=== PATIENT | male | born 1960 | race Caucasian/White ===

== ENCOUNTER → 2017-03-31 | Outpatient (CLI) | payer OTHER ==
--- NOTE | 2017-04-01 08:42 | MR ---
EXAMINATION TYPE: MR knee RT wo con DATE OF EXAM: 03/31/2017 COMPARISON: Prior MRI March 13, 2014. Outside right knee x-ray March 07, 20192016 HISTORY: Rt knee pain and swelling for 2 to 5 years TECHNIQUE: Multiplanar, multisequence images of the knee is performed without IV contrast. FINDINGS: MEDIAL MENISCUS: Anterior horn is intact without tear. There is oblique and linear shaped increased s ignal posterior horn of medial meniscus extends to inferior and superior articular surface, findings are consistent with full-thickness meniscal tear. More prominent signal is noted versus prior study. LATERAL MENISCUS: Anterior and posterior horns are intact without tear. CRUCIATE LIGAMENTS: The anterior and posterior cruciate ligaments are intact and unremarkable. COLLATERAL LIGAMENTS: The medial collateral ligament and lateral collateral ligament complex are inta ct and unremarkable. EXTENSOR MECHANISM: Visualized quadriceps and patellar tendons are intact. EFFUSION: There is moderate to large size suprapatellar joint effusion now identified. POPLITEAL CYST: No popliteal/benson cyst. TRICOMPARTMENT SPACES: There is mild to moderate tricompartment joint space loss. There is mild trico mpartment joint space spurring. CARTILAGE: There is mild fissuring in the posterior patellar pole consistent with chondromalacia maddox lla. No full-thickness loss is present. There is additional fissuring medial tibiofemoral compartment seen best sagittal image 11, cartilaginous loss is also noted on coronal image 19. Cartilaginous los s is most prominent at this level likely on basis of osteoarthritis. BONE MARROW SIGNAL: No focal abnormal marrow signal is appreciated. OTHER: No additional significant abnormality is appreciated. IMPRESSION: 1. Some progression of full-thickness tear posterior horn of medial meniscus with increased irregular linear and oblique signal identified on current study. 2. New moderate to large size suprapatellar joint effusion. 3. Mild to moderate degenerative changes in right knee most prominent medial tibiofemoral compartment most likely on basis of underlying osteoarthritis.
== END | disposition home or self-care (01) ==
LOC: RADMRIMAIN 19:36
PROVIDERS: ATTEND Orthopaedic Surgery
DX: S83.241A Other tear of medial meniscus, current injury, right knee, initial encounter (principal)

== ENCOUNTER → 2017-04-08 | Outpatient (CLI) | payer OTHER ==
[2017-04-09 15:57] LABS: Basophils # (A) 0.1 k/uL (0-0.2); Basophils % (A) 1 %; CH 30.3; CHCM 32.7; Eosinophils # (A) 0.2 k/uL (0-0.7); Eosinophils % (A) 2 %; HCT 48.9 % (39.0-53.0); HDW 2.95; HGB 15.9 gm/dL (13.0-17.5); Luc % (Auto) 3; Lymphocytes # (A) 1.7 k/uL (1.0-4.8); Lymphocytes % (A) 23 %; MCH 30.2 pg (25.0-35.0); MCHC 32.5 g/dL (31.0-37.0); Mean Platelet Volume 8.4; Monocytes # (A) 0.5 k/uL (0-1.0); Monocytes % (A) 7 %; Neutrophils # (A) 4.7 k/uL (1.3-7.7); Neutrophils % (A) 64 %; RBC 5.26 m/uL (4.30-5.90); RDW 12.8 % (11.5-15.5); WBC 7.4 k/uL (3.8-10.6); WBC (Perox) 7.25
[2017-04-09 16:02] LABS: Potassium 4.8 mmol/L (3.5-5.1)
== END | disposition home or self-care (01) ==
LOC: LABPAT 12:06
PROVIDERS: ATTEND Orthopaedic Surgery
DX: Z01.818 Encounter for other preprocedural examination (principal); Z01.812 Encounter for preprocedural laboratory examination; M23.91 Unspecified internal derangement of right knee
CPT/HCPCS: 80051; 85025; 93005

== ENCOUNTER 2017-04-14 09:22 | Day surgery (SDC) | payer OTHER ==
[2017-04-12 09:19] VITALS: BMI 32.3
--- NOTE | 2017-04-13 16:22 | HP ---
HISTORY AND PHYSICAL REASON FOR ADMISSION: Surgery is 04/14/2017. HISTORY OF PRESENT ILLNESS: Yanick Shah is a 57-year-old patient seen with progressive right knee pain. We discussed treatment options. He elected to proceed with arthroscopy. Consent regarding the procedure was obtained. PAST MEDICAL HISTORY: Past medical history is hyperlipidemia. PAST SURGICAL HISTORY: Noncontributory. MEDICATIONS: Simvastatin, Uloric. ALLERGIES: None reported. SOCIAL HISTORY: Patient denies tobacco use. PHYSICAL EXAMINATION: Evaluation right knee range of motion 0-120 degrees. There is a moderate effusion. Tenderness medial joint line. Positive medial Saniya's. Crepitus along the medial patellofemoral compartments with range of motion. Ligaments stable. Hip rotation without pain. Distal neurovascular exam intact. RADIOGRAPHS: Right knee radiographs revealed moderate medial compartment and moderate lateral compartment osteoarthritis. MRI right knee revealed medial meniscal tear, osteoarthritis and joint effusion. IMPRESSION: Internal derangement, right knee with medial meniscal tear. PLAN: Right knee arthroscopy with partial meniscectomy and debridement. Surgery 04/14/2017. MMODL / IJN: [id number] /
[~2017-04-14 09:22] MED LIST: DEXAMETHASONE SOD PHOSPHATE 10 MG/ML 1 ML VIAL IV ONE; LACTATED RINGERS 1,000 ML IV SCH; MIDAZOLAM 2 MG/2 ML VIAL IV PRN; ONDANSETRON 4 MG/2 ML VIAL IVP ONE; ceFAZolin IN SWFI 2 GM/20 ML SYRINGE IVP ONE
[2017-04-14 09:47] VITALS: RESP 16
[2017-04-14] MEDS ORDERED: LIDOCAINE 1% 20 ML VIAL (10MG/ML) FOR IV START INTRADERMA ONE (09:58)
[2017-04-14] MEDS ORDERED: PROPOFOL 10 MG/ML 20 ML VIAL IV ONE (10:32)
[2017-04-14] MEDS ORDERED: LIDOCAINE 1% INJ 10MG/ML (20 ML MDV) ONE (10:32)
[2017-04-14] MEDS ORDERED: HYDROmorphone (PF) 1 MG/ML ONE (10:32)
[2017-04-14] MEDS ORDERED: BUPIVACAINE (PF) 0.25% 30 ML VIAL SQ ONE (10:32)
[2017-04-14] MEDS ORDERED: fentaNYL (PF) 50 MCG/ML 2 ML AMP ONE (10:32)
[2017-04-14] MEDS ORDERED: MIDAZOLAM 2 MG/2 ML VIAL ONE (10:32)
[2017-04-14] MEDS ORDERED: KETOROLAC 30 MG/ML 1 ML VIAL ONE (10:32)
[2017-04-14 11:23] VITALS: TEMP 97.1
--- NOTE | 2017-04-14 11:23 | P.OP ---
Date of Procedure: 04/14/17 Preoperative Diagnosis: Internal derangement right knee Postoperative Diagnosis: 1. Tear medial and lateral meniscus right knee 2. Grade 3/4 chondromalacia medial femoral condyle right knee 3. 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 Reactive synovitis medial and suprapatellar compartments right knee Procedure(s) Performed: 1. Arthroscopic partial medial and lateral meniscectomy right knee 2. Arthroscopic chondroplasty medial femoral condyle right knee 3. Arthroscopic chondroplasty patella right knee 4. Arthroscopic partial synovectomy medial and suprapatellar compartments right knee Anesthesia: MARIANNAA, local Surgeon: Casey King Estimated Blood Loss (ml): 10 Pathology: none sent Condition: stable Disposition: PACU Indications for Procedure: 57-year-old patient seen with progressive right knee pain. After treatment options were discussed, he elected to proceed with arthroscopy. Operative Findings: See description of procedure Description of Procedure: Patient was taken to the operative suite. Patient underwent a general anesthetic by the department of anesthesia. Patient was given preoperative antibiotics. The right lower extremity was placed in a well-padded arthroscopic leg naqvi. The right leg was prepped and draped in the normal sterile orthopedic fashion. A lateral parapatellar and suprapatellar incision was made. Trochars were inserted. Arthroscopy was initiated. Suprapatellar pouch revealed diffuse thick reactive synovitis. The patellofemoral joint appeared to articulate congruently. There was grade 2/3 chondromalacia of the patella with osteochondral tears present. The scope was guided into the medial gutter. No loose bodies or plica were identified. The scope was then guided into the medial compartment. A medial parapatellar incision was made. Trocar inserted followed by probe. There was a complex tear posterior horn medial meniscus which extended into the midbody. There were grade 3/4 chondromalacia changes of the medial femoral condyle with osteochondral tears present. There were grade 2 chondromalacia changes of the tibial plateau. There was reactive synovitis anteriorly. I performed a partial medial meniscectomy down to stable tissue. I performed a chondroplasty of the medial femoral condyle and partial synovectomy. The residual meniscus and osteochondral surfaces were stable. Scope and probe were then guided into the intercondylar notch. Cruciates were identified, probed and found to be stable. The scope and probe were then guided into lateral compartment. There was a radial tear posterior horn lateral meniscus. Grade 1 chondromalacia changes lateral tibial plateau. No loose bodies or reactive synovitis. I performed a partial lateral meniscectomy down to stable tissue. The residual meniscus was stable. The scope was in guided back into the suprapatellar compartment. I introduced a motorized shaver into the super patellar compartment. I debrided some piecemeal fragments of meniscus I encountered. I performed a chondroplasty of the patella down to stable tissue. I performed a partial synovectomy. Instruments were now removed from the joint. The joint was infiltrated with .25% Marcaine. Steri-Strips were applied to the portal sites. Sterile dressings were applied. The patient was placed into a JUDY hose. No tourniquet was utilized. The patient was awakened, transferred to a bed and taken to recovery stable satisfactory condition.
[2017-04-14] MEDS: HYDROmorphone 0.5 MG/0.5 ML SYRINGE IVP PRN ×2 (11:40→11:51)
[2017-04-14] MEDS ORDERED: HYDROcodone/APAP 5-325MG 1 EACH TAB PO ONE (12:18)
[2017-04-14 12:32] VITALS: BP 142/81; PULSE 80
== END 2017-04-14 13:00 | disposition home or self-care (01) ==
LOC: OR 09:22
PROVIDERS: ATTEND Orthopaedic Surgery
DX: M23.221 Derangement of posterior horn of medial meniscus due to old tear or injury, right knee (principal); M23.251 Derangement of posterior horn of lateral meniscus due to old tear or injury, right knee; M94.261 Chondromalacia, right knee; M65.861 Other synovitis and tenosynovitis, right lower leg; E78.5 Hyperlipidemia, unspecified; Z79.82 Long term (current) use of aspirin; Z79.899 Other long term (current) drug therapy
CPT/HCPCS: 29880; J2250; J1100; J0690; J2405; J2001; J3010; J1885; J1170 ×2; J2704

== ENCOUNTER → 2018-03-03 | Outpatient (CLI) | payer OTHER ==
--- NOTE | 2018-03-03 11:57 | XR ---
EXAMINATION TYPE: XR shoulder complete BILAT DATE OF EXAM: 03/03/2018 CLINICAL HISTORY: Bilateral shoulder pain for 4 months. TECHNIQUE: Three views of the bilateral shoulders are obtained. COMPARISON: None. FINDINGS: There is no acute fracture/dislocation evident in either shoulder. There is moderate to se jayce narrowing at left AC Joint with mild to moderate spurring. There is mild to moderate narrowing a t right AC joint. There is mild to moderate symmetric narrowing at bilateral AC joints. The visuali zed ribs are intact and unremarkable bilaterally. IMPRESSION: As above.
--- NOTE | 2018-03-03 12:05 | XR ---
EXAMINATION TYPE: XR Hip Bilateral Complete DATE OF EXAM: 03/03/2018 CLINICAL HISTORY: Bilateral hip pain. TECHNIQUE: AP and frogleg views of the bilateral hip are obtained. COMPARISON: None. FINDINGS: There is no acute fracture/dislocation evident in either hip. There is mild to moderate ax ial joint space loss in both hips, right slightly worse than left with mild to moderate head neck elizabeth ctional spurring right greater than left and subchondral cystic change in both hips, left greater georgette n right. The overlying soft tissue appears unremarkable bilaterally. IMPRESSION: As above.
== END | disposition home or self-care (01) ==
LOC: RADXRMAIN 11:09
PROVIDERS: ATTEND Family Medicine
DX: M25.812 Other specified joint disorders, left shoulder (principal); M25.811 Other specified joint disorders, right shoulder; M85.651 Other cyst of bone, right thigh; M85.652 Other cyst of bone, left thigh; M75.02 Adhesive capsulitis of left shoulder; M75.01 Adhesive capsulitis of right shoulder
CPT/HCPCS: 73521

== ENCOUNTER 2019-03-21 07:37 | Day surgery (SDC) | payer OTHER ==
[2019-03-19 09:17] VITALS: BMI 29.1
--- NOTE | 2019-03-20 19:36 | P.GSHP ---
History of Present Illness H&P Date: 03/20/19 Chief Complaint: Bilateral inguinal hernia This 59-year-old male seen in the office with complaints of left groin swelling. Some discomfort at times. He lost 35 pounds so he is not sure if maybe the hernia has been there longer has just now noticeable. No change in bowel habits. No nausea or vomiting. Past Medical History Past Medical History: Hyperlipidemia, Osteoarthritis (OA) Additional Past Medical History / Comment(s): gout, KIDNEY STONES X2 History of Any Multi-Drug Resistant Organisms: None Reported Past Surgical History: Orthopedic Surgery Additional Past Surgical History / Comment(s): kidney stones removed, RIGHT ARTHROSCOPIC KNEE, LEFT ARTHROSCOPIC KNEE SURGERY Past Anesthesia/Blood Transfusion Reactions: No Reported Reaction Smoking Status: Never smoker - Past Family History Mother Family Medical History: Cancer Additional Family Medical History / Comment(s): BREAST CANCER Medications and Allergies Home Medications Medication Instructions Recorded Confirmed Type Simvastatin 20 mg PO HS 11/10/15 03/19/19 History Multivitamins, Thera [Multivitamin 1 tab PO DAILY 04/12/17 03/19/19 History (formulary)] Aspirin [Aspirin EC] 650 mg PO Q6H 03/19/19 03/19/19 History Allergies Allergy/AdvReac Type Severity Reaction Status Date / Time No Known Allergies Allergy Verified 03/19/19 09:09 Surgical - Exam Physical exam: General: Well-developed, well-nourished HEENT: Normocephalic, sclerae nonicteric Abdomen: Nontender, nondistended, Bilateral inguinal hernia left greater than right Extremities: No edema Neuro: Alert and oriented Assessment and Plan (1) Bilateral inguinal hernia Narrative/Plan: 59-year-old male with bilateral inguinal hernia. We'll proceed with laparoscopic bilateral inguinal hernia repair with davinci assistance and with mesh. Risks of bleeding, infection, recurrence, chronic pain, conversion, bladder and bowel injury, numbness, scarring, and anesthesia-related complications were discussed. The patient understands and wishes to proceed. Status: Acute Code(s): K40.20 - BI INGUINAL HERNIA, W/O OBST OR GANGRENE, NOT SPCF RECUR SNOMED Code(s): 91238404
[~2019-03-21 07:37] MED LIST changes: +HEPARIN SODIUM,PORCINE 5,000 UNIT/ML 1 ML VIAL SQ ONE; +HYDROmorphone 0.5 MG/0.5 ML SYRINGE IVP PRN; +LIDOCAINE 1% 20 ML VIAL (10MG/ML) FOR IV START INTRADERMA PRN; +SCOPOLAMINE 1.5MG/72HR PATCH TRANSDERM ONE; -ceFAZolin IN SWFI 2 GM/20 ML SYRINGE IVP ONE
[2019-03-21 08:32] LABS: Basophils % (A) 1 %; Eosinophils # (A) 0.1 k/uL (0-0.7); Eosinophils % (A) 2 %; HCT 48.6 % (39.0-53.0); HGB 17.1 gm/dL (13.0-17.5); Lymphocytes # (A) 1.6 k/uL (1.0-4.8); Lymphocytes % (A) 27 %; MCH 31.9 pg (25.0-35.0); MCHC 35.2 g/dL (31.0-37.0); MCV 90.7 fL (80.0-100.0); Mean Platelet Volume 6.6; Monocytes # (A) 0.4 k/uL (0-1.0); Monocytes % (A) 7 %; Neutrophils # (A) 3.6 k/uL (1.3-7.7); Neutrophils % (A) 61 %; Platelet Count 184 k/uL (150-450); RBC 5.37 m/uL (4.30-5.90); RDW 12.2 % (11.5-15.5)
--- NOTE | 2019-03-21 09:06 | P.ANPRN ---
Procedure Note - Anesthesia - Nerve Block Performed Bilateral Transversus Abdominis Single Time Out Performed: Yes Date of Procedure: 03/21/19 Procedure Start Time: 08:45 Procedure Stop Time: 08:52 Location of Patient: PreOp Indication: Acute Post-Operative Pain, Analgesia, Dx/Pain Location, Requested by Surgeon Sedation Type: Sedate with meaningful contact maintained Preparation: Sterile Prep Position: Supine Catheter: None Needle Types: Pajunk Needle Gauge: 21 Ultrasound used to visualize needle placement: Yes Ultrasound used to observe medication spread: Yes Injectate: Other (see comment) (0.25% bupivaciane 30cc b/l) Blood Aspirated: No Pain Paresthesia on Injection Noted: No Resistance on Injection: Normal Image Stored and Saved: Yes Events: Uneventful and Well Tolerated
[2019-03-21 10:20] VITALS: TEMP 97.7
--- NOTE | 2019-03-21 12:47 | P.CRDCN ---
History of Present Illness History of present illness: HISTORY OF PRESENTING ILLNESS This is a pleasant 59-year-old male past medical history significant for dyslipidemia and bilateral inguinal hernia. He presented for elective bilateral inguinal hernia repair with Dr. Wood. He does not follow in the office with a pedicurist for any reason. We have been asked to see him in consultation for new-onset atrial flutter. He presented to the hospital this morning and was noted to be in sinus mechanism on telemetry at 9:15. When she was taken into the OR suite and placed on telemetry he was found to be in atrial flutter with variable rates. Surgery was postponed and he was taken to recovery. EKG obtained in the recovery room revealed atrial flutter, typical. He denies symptoms of chest pain, shortness of breath, dizziness or palpitations. He states he has additionally stressful job and at times does get a chest discomfort in the left precordial region while he is under stress. However this has not occurred for several months. He denies prior history of hypertension, diabetes mellitus or coronary artery disease. He states he had a stress test per his primary care physician approximately 8 years ago. Current cardiac medications include simvastatin 20 mg daily. Laboratory data reviewed, WBC 6.0, hemoglobin 17.1, platelets 184. REVIEW OF SYSTEMS At the time of my exam: CONSTITUTIONAL: Denies fever or chills. CARDIOVASCULAR: Denies chest pain, shortness of breath, orthopnea, PND or palpitations. RESPIRATORY: Denies cough. GASTROINTESTINAL: Denies abdominal pain, diarrhea, constipation, nausea or vomiting. MUSCULOSKELETAL: Denies myalgias. NEUROLOGIC: Denies numbness, tingling or weakness. ENDOCRINE: Denies fatigue, weight change, polydipsia or polyurina. GENITOURINARY: Denies burning, hematuria or urgency with micturation. HEMATOLOGIC: Denies history of anemia or bleeding. PHYSICAL EXAMINATION Blood pressure 130/79 heart rate 97 afebrile and maintaining oxygen saturation on room air. CONSTITUTIONAL: No apparent distress. HEENT: Head is normocephalic. Pupils are equal, round. Sclerae anicteric. Mucous membranes of the mouth are moist. No JVD. No carotid bruit. CHEST EXAMINATION: Lungs are clear to auscultation. No chest wall tenderness is noted on palpation or with deep breathing. HEART EXAMINATION: Irregular rate and rhythm. S1, S2 heard. No murmurs, gallops or rub. ABDOMEN: Soft, nontender. Positive bowel sounds. EXTREMITIES: 2+ peripheral pulses, no lower extremity edema and no calf tenderness. NEUROLOGIC EXAMINATION: Patient is awake, alert and oriented x3. ASSESSMENT Paroxysmal atrial flutter with variable ventricular rates Dyslipidemia Bilateral inguinal hernia PLAN At the time of my exam the patient is seen and examined resting comfortably with his at the bedside. He continues to be in atrial flutter with a variable rate fluctuating between 70 and 120. We will initiate him on Toprol 25 mg daily and Eliquis 5 mg twice a day. Obtain 2-D echocardiogram and Doppler study. Hemodynamically stable for discharge from a cardiac perspective. Follow-up appointment has been made in the office with Dr. Henderson for tomorrow at 3:00. We recommend he undergo stress testing prior to proceeding with surgery. Further down the line we will consider MAYURI and cardioversion. Thank you kindly for this consultation. Nurse Practitioner note has been reviewed, I agree with a documented findings and plan of care. Patient was seen and examined. Past Medical History Past Medical History: Hyperlipidemia, Osteoarthritis (OA) Additional Past Medical History / Comment(s): gout, KIDNEY STONES X2 History of Any Multi-Drug Resistant Organisms: None Reported Past Surgical History: Orthopedic Surgery Additional Past Surgical History / Comment(s): kidney stones removed, RIGHT ARTHROSCOPIC KNEE, LEFT ARTHROSCOPIC KNEE SURGERY Past Anesthesia/Blood Transfusion Reactions: No Reported Reaction Smoking Status: Never smoker - Past Family History Mother Family Medical History: Cancer Additional Family Medical History / Comment(s): BREAST CANCER Medications and Allergies Home Medications Medication Instructions Recorded Confirmed Type Simvastatin 20 mg PO HS 11/10/15 03/21/19 History Multivitamins, Thera [Multivitamin 1 tab PO DAILY 04/12/17 03/19/19 History (formulary)] Apixaban [Eliquis] 5 mg PO BID #60 tab 03/21/19 Rx Hydrocodone/Acetaminophen [[place] 1 tab PO Q6HR PRN 3 Days #10 tab 03/21/19 Rx 5-325] Metoprolol Succinate (ER) [Toprol 25 mg PO DAILY #90 tab.er.24h 03/21/19 Rx XL] Allergies Allergy/AdvReac Type Severity Reaction Status Date / Time No Known Allergies Allergy Verified 03/21/19 08:05 Physical Exam Vitals: Vital Signs Temp Pulse Pulse Resp BP Pulse Ox 03/21/19 12:22 97 18 130/79 95 03/21/19 12:00 102 H 16 133/77 94 L 03/21/19 11:46 97 16 133/83 96 03/21/19 11:29 103 H 16 149/72 96 03/21/19 10:20 90 16 132/80 95 03/21/19 10:06 97.7 F 112 H 12 135/90 94 L 03/21/19 09:04 73 16 129/72 97 03/21/19 08:13 98.9 F 91 16 138/75 97 Intake and Output 03/20/19 03/21/19 03/21/19 22:59 06:59 14:59 Intake Total 800 Balance 800 Intake: IV 800 Other: Weight 97.976 kg Results 03/21/19 08:10 CBC 03/21/19 Range/Units 08:10 WBC 6.0 (3.8-10.6) k/uL RBC 5.37 (4.30-5.90) m/uL Hgb 17.1 (13.0-17.5) gm/dL Hct 48.6 (39.0-53.0) % Plt Count 184 (150-450) k/uL Current Medications Generic Name Dose Route Start Last Admin Trade Name Freq PRN Reason Stop Dose Admin Hydromorphone HCl 0.5 mg 03/21/19 05:56 Dilaudid IVP 03/22/19 05:57 Q5M PRN Pain Control Lactated Ringer's 1,000 mls @ 20 mls/hr 03/21/19 05:56 03/21/19 08:35 Lactated Ringers IV 800 mls .Q24H BHARGAV Administration Lidocaine HCl 0.1 ml 03/21/19 05:56 03/21/19 08:30 .Xylocaine 1% Inj (10mg/Ml) For Iv Start INTRADERMA 0.2 ml PER PROTOCOL PRN Administration IV Start Metoprolol Succinate 25 mg 03/21/19 12:45 Toprol Xl PO DAILY BHARGAV Midazolam HCl 2 mg 03/21/19 05:56 03/21/19 08:46 Versed IV 03/22/19 05:57 2 mg ONCE PRN Administration Anxiety Intake and Output 03/20/19 03/21/19 03/21/19 22:59 06:59 14:59 Intake Total 800 Balance 800 Intake: IV 800 Other: Weight 97.976 kg Patient Weight 03/22/19 06:59 Weight 97.976 kg 03/21/19 08:10
[2019-03-21] MEDS ORDERED: METOPROLOL SUCCINATE (ER) 25 MG TAB.ER.24H PO STA (12:56)
--- NOTE | 2019-03-21 13:00 | ECHOF ---
Referral Reason:new onset a-flutter MEASUREMENTS -------- HEIGHT: 182.9 cm WEIGHT: 117.9 kg BP: 137/78 RVIDd: 3.7 cm (< 3.3) IVSd: 1.1 cm (0.6 - 1.1) LVIDd: 4.5 cm (3.9 - 5.3) LVPWd: 1.1 cm (0.6 - 1.1) IVSs: 1.7 cm LVIDs: 2.7 cm LVPWs: 1.7 cm LA Diam: 3.6 cm (2.7 - 3.8) Ao Diam: 3.5 cm (2.0 - 3.7) AV Cusp: 2.4 cm (1.5 - 2.6) MV EXCURSION: 21.518 mm (> 18.000) MV EF SLOPE: 128 mm/s (70 - 150) EPSS: 0.5 cm RAP: 5.00 mmHg RVSP: 28.21 mmHg FINDINGS -------- The rhythm appears to be atrial flutter. This was a technically difficult study with suboptimal apical views. The left ventricular size is normal. There is borderline concentric left ventricular hypertrophy. Overall left ventricular systolic function is low-normal with, an EF between 50 - 55 %. The right ventricle is mildly enlarged. The left atrial size is normal. The right atrium is normal in size. 5 ml of Lumason was utilized for enhancement of images. Interatrial and interventricular septum intact. The aortic valve is trileaflet and appears structurally normal. There is trace to mild mitral regurgitation. Mild tricuspid regurgitation present. Right ventricular systolic pressure is normal at < 35 mmHg. Moderate pulmonic regurgitation. The aortic root size is normal. Normal inferior vena cava with normal inspiratory collapse consistent with estimated right atrial pre ssure of 5 mmHg. There is no pericardial effusion. CONCLUSIONS -------- 1. The rhythm appears to be atrial flutter. 2. This was a technically difficult study with suboptimal apical views. 3. The left ventricular size is normal. 4. There is borderline concentric left ventricular hypertrophy. 5. Overall left ventricular systolic function is low-normal with, an EF between 50 - 55 %. 6. The right ventricle is mildly enlarged. 7. The left atrial size is normal. 8. The right atrium is normal in size. 9. 5 ml of Lumason was utilized for enhancement of images. 10. Interatrial and interventricular septum intact. 11. The aortic valve is trileaflet and appears structurally normal. 12. There is trace to mild mitral regurgitation. 13. Mild tricuspid regurgitation present. 14. Right ventricular systolic pressure is normal at < 35 mmHg. 15. Moderate pulmonic regurgitation. 16. The aortic root size is normal. 17. Normal inferior vena cava with normal inspiratory collapse consistent with estimated right atrial pressure of 5 mmHg. 18. There is no pericardial effusion. CREDIT FRONT OFFICE DEVELOPER: Wilma Hightower RDCS
[2019-03-21 13:43] VITALS: BP 126/80; PULSE 96; RESP 16
[2019-03-22] MEDS ORDERED: METOPROLOL SUCCINATE (ER) 25 MG TAB.ER.24H PO SCH (09:00)
== END 2019-03-21 14:25 | disposition home or self-care (01) ==
LOC: OR 07:37
PROVIDERS: ATTEND Surgery
DX: K40.20 Bilateral inguinal hernia, without obstruction or gangrene, not specified as recurrent (principal); Z53.09 Procedure and treatment not carried out because of other contraindication; I48.3 Typical atrial flutter; E78.5 Hyperlipidemia, unspecified; M19.90 Unspecified osteoarthritis, unspecified site; E11.9 Type 2 diabetes mellitus without complications; M10.9 Gout, unspecified; Z87.442 Personal history of urinary calculi; Z98.890 Other specified postprocedural states; Z79.899 Other long term (current) drug therapy; Z79.01 Long term (current) use of anticoagulants; Z80.3 Family history of malignant neoplasm of breast
CPT/HCPCS: 93306; 93005; 64488; 85025; J2250; J1644; J1100; J2405; Q9950

== ENCOUNTER → 2019-03-22 | Outpatient (CLI) | payer OTHER ==
[2019-03-23 00:20] LABS: African American GFR (CKD) 68.3 (60.0-200.0); Anion Gap 5.9 mmol/L (4.00-12.00); Carbon Dioxide 26.1 mmol/L (21.6-31.8); Non-African American GFR(CKD) 58.9 (60.0-200.0); Potassium 3.9 mmol/L (3.5-5.5)
== END | disposition home or self-care (01) ==
LOC: LABWHC1 16:37
PROVIDERS: ATTEND Internal Medicine Cardiovascular Disease
DX: I48.0 Paroxysmal atrial fibrillation (principal)
CPT/HCPCS: 36415; 80051; 82565; 84443; 84520

== ENCOUNTER 2019-04-24 06:51 | Day surgery (SDC) | payer OTHER ==
[2019-04-16 13:05] VITALS: BMI 29.8
[2019-04-24 07:25] VITALS: TEMP 98
[2019-04-24] MEDS ORDERED: SODIUM CHLORIDE 0.9% 500 ML 500 ML IV ONE (07:26)
[2019-04-24] MEDS ORDERED: fentaNYL (PF) 50 MCG/ML 2 ML AMP ONE (07:55)
[2019-04-24] MEDS ORDERED: BENZOCAINE SPRAY 1 CAN TOPICAL ONE (08:04)
[2019-04-24] MEDS ORDERED: MIDAZOLAM 2 MG/2 ML VIAL IV ONE ×2 (08:04→08:10)
[2019-04-24] MEDS ORDERED: fentaNYL (PF) 50 MCG/ML 2 ML AMP IV ONE (08:08)
--- NOTE | 2019-04-24 08:51 | ECHOT ---
TRANSESOPHAGEAL ECHOCARDIOGRAM INDICATION: Abnormal echo. PROCEDURE NOTE: After obtaining informed consent, transesophageal echocardiogram is performed in left lateral position using an Omni plane probe. Local and IV sedation were obtained using Xylocaine spray and 3 mg of Versed and 50 mcg of fentanyl. Patient tolerated the procedure well without any obvious immediate complications. Patient received moderate conscious sedation. Total sedation time was 9 minutes. FINDINGS: 1. Right atrium appears enlarged. 2. Right ventricle appears enlarged. 3. There is no evidence of interatrial septum. There is no evidence of blei-ie-jcbcg shunt by color-flow Doppler or rnmkj-op-pzna shunt by agitated saline contrast study. 4. Tricuspid valve shows mild tricuspid regurgitation. 5. Mitral valve shows mild mitral regurgitation. 6. Aortic valve shows trace aortic regurgitation. Aorta is free of significant atherosclerosis. Left ventricle has normal size and systolic function. Left atrium appears normal. CONCLUSION: 1. No evidence of guyz-yu-klemr or imstt-oj-tdui shunt across the interatrial septum. #2 right atrial enlargement. 2. Right ventricular enlargement, but with. 3. RV systolic dysfunction. PLAN: Patient will continue with the oral anticoagulant at this time. Today, he is in normal sinus rhythm. He has insurance is not covering Eliquis. He will go on to Xarelto after his hernia surgery is done. The patient after the hernia surgery is done, the patient will be referred for atrial fibrillation ablation. MMODL / IJN: [id number] /
[2019-04-24 08:59] VITALS: RESP 16
[2019-04-24 12:18] VITALS: BP 122/76; PULSE 55
== END 2019-04-24 09:51 | disposition home or self-care (01) ==
LOC: CATHCVL 06:51
PROVIDERS: ATTEND Internal Medicine Cardiovascular Disease
DX: I48.19 Other persistent atrial fibrillation (principal); I08.1 Rheumatic disorders of both mitral and tricuspid valves; E78.5 Hyperlipidemia, unspecified; Z79.01 Long term (current) use of anticoagulants; Z79.899 Other long term (current) drug therapy; Z82.49 Family history of ischemic heart disease and other diseases of the circulatory system
CPT/HCPCS: 93312; 93325; J2250; J3010

== ENCOUNTER 2019-05-16 05:52 | Day surgery (SDC) | payer OTHER ==
[2019-05-11 14:44] VITALS: BMI 29.8
[~2019-05-16 05:52] MED LIST changes: -HYDROmorphone 0.5 MG/0.5 ML SYRINGE IVP PRN; -LACTATED RINGERS 1,000 ML IV SCH; -MIDAZOLAM 2 MG/2 ML VIAL IV PRN; -ONDANSETRON 4 MG/2 ML VIAL IVP ONE; -SCOPOLAMINE 1.5MG/72HR PATCH TRANSDERM ONE
[2019-05-16] MEDS: LACTATED RINGERS 1,000 ML IV SCH (06:46)
[2019-05-16] MEDS: ONDANSETRON 4 MG/2 ML VIAL IVP ONE ×2 (06:49→11:42)
[2019-05-16] MEDS ORDERED: MIDAZOLAM 2 MG/2 ML VIAL IV ONE (07:11)
[2019-05-16] MEDS ORDERED: fentaNYL (PF) 50 MCG/ML 2 ML AMP IV ONE (07:12)
--- NOTE | 2019-05-16 07:36 | P.ANPRN ---
Procedure Note - Anesthesia - Nerve Block Performed Bilateral Transversus Abdominis Single Time Out Performed: Yes Date of Procedure: 05/16/19 Procedure Start Time: 07:12 Procedure Stop Time: :22 Location of Patient: PreOp Indication: Acute Post-Operative Pain, Requested by Surgeon Sedation Type: Sedate with meaningful contact maintained Preparation: Sterile Prep Position: Supine Catheter: None Needle Types: Pajunk Needle Gauge: 21 Ultrasound used to visualize needle placement: Yes Ultrasound used to observe medication spread: Yes Injectate: 0.5% Ropivacaine (see comment for volume) (ropivacaine 0.5% 20 cc + decadron 4mg-- per side) Blood Aspirated: No Pain Paresthesia on Injection Noted: No Resistance on Injection: Normal Image Stored and Saved: Yes Events: Uneventful and Well Tolerated
--- NOTE | 2019-05-16 07:39 | P.GSHP ---
History of Present Illness H&P Date: 05/16/19 Chief Complaint: Bilateral inguinal hernia 59-year-old male seen in the office in December. Patient complaining of left groin swelling. Mild pain at times. No history of previous hernias. On exam patient's was found to have have bilateral hernias. No change in bowel habits. Past Medical History Past Medical History: Atrial Fibrillation, Hyperlipidemia, Hypertension, Osteoarthritis (OA) Additional Past Medical History / Comment(s): gout, KIDNEY STONES X2 History of Any Multi-Drug Resistant Organisms: None Reported Past Surgical History: Orthopedic Surgery Additional Past Surgical History / Comment(s): kidney stones removed, RIGHT ARTHROSCOPIC KNEE, LEFT ARTHROSCOPIC KNEE SURGERY, recent MAYURI Past Anesthesia/Blood Transfusion Reactions: No Reported Reaction Smoking Status: Never smoker - Past Family History Mother Family Medical History: Cancer Additional Family Medical History / Comment(s): BREAST CANCER Medications and Allergies Home Medications Medication Instructions Recorded Confirmed Type Simvastatin 20 mg PO HS 11/09/05/11/19 History Multivitamins, Thera [Multivitamin 1 tab PO DAILY 04/12/17 05/11/19 History (formulary)] Metoprolol Succinate (ER) [Toprol 25 mg PO DAILY #90 tab.er.24h 03/21/19 05/11/19 Rx XL] Rivaroxaban [Xarelto] 20 mg PO DAILY #90 tab 04/24/19 05/11/19 Rx Cholecalciferol [Vitamin D3 (25 1,000 unit PO DAILY 05/11/19 05/11/19 History Mcg = 1000 Iu)] Mv-Min/Vit C/Glut/Lysine/Hb124 1 each PO DAILY 05/11/19 05/11/19 History [Immune Support Chewable Tablet] Turmeric Root Extract [Turmeric] 500 mg PO DAILY 05/11/19 05/11/19 History Allergies Allergy/AdvReac Type Severity Reaction Status Date / Time No Known Allergies Allergy Verified 05/16/19 06:25 Surgical - Exam Vital Signs Temp Pulse Resp BP Pulse Ox 97.3 F L 58 L 16 123/70 97 05/16/19 06:24 05/16/19 06:24 05/16/19 06:24 05/16/19 06:24 05/16/19 06:24 Physical exam: General: Well-developed, well-nourished HEENT: Normocephalic, sclerae nonicteric Abdomen: Nontender, nondistended, large left inguinal hernia, small moderate size right inguinal hernia, both reducible Extremities: No edema Neuro: Alert and oriented Assessment and Plan (1) Bilateral inguinal hernia Narrative/Plan: Will proceed with laparoscopic da You assisted bilateral inguinal hernia repair with mesh possible open. Risks of bleeding, infection, recurrence, bladder and bowel injury, numbness, nerve injury, conversion to an open procedure were discussed with the patient. The patient understands and wishes to proceed. Current Visit: No Status: Acute Code(s): K40.20 - BI INGUINAL HERNIA, W/O OBST OR GANGRENE, NOT SPCF RECUR SNOMED Code(s): 49896694
[2019-05-16] MEDS ORDERED: fentaNYL (PF) 50 MCG/ML 2 ML AMP ONE (07:43)
[2019-05-16] MEDS ORDERED: ROCURONIUM BROMIDE 10 MG/ML 10 ML VIAL IV ONE (07:43)
[2019-05-16] MEDS ORDERED: PROPOFOL 10 MG/ML 20 ML VIAL IV ONE (07:43)
[2019-05-16] MEDS ORDERED: DEXAMETHASONE SOD PHOSPHATE 4 MG/ML 1 ML VIAL ONE (07:43)
[2019-05-16] MEDS ORDERED: NEOSTIGMINE 1 MG/ML 10 ML VIAL ONE (07:43)
[2019-05-16] MEDS ORDERED: MIDAZOLAM 2 MG/2 ML VIAL ONE (07:43)
[2019-05-16] MEDS ORDERED: GLYCOPYRROLATE 0.2 MG/ML 2 ML VIAL ONE (07:43)
[2019-05-16] MEDS ORDERED: LIDOCAINE 1% INJ 10MG/ML (20 ML MDV) ONE (07:43)
[2019-05-16] MEDS ORDERED: ROPIVACAINE 5 MG/ML 30 ML VIAL ONE (07:43)
[2019-05-16] MEDS ORDERED: BUPIVACAINE (PF) 0.25% 30 ML VIAL SQ ONE (08:20)
[2019-05-16] MEDS ORDERED: LACTATED RINGERS 1,000 ML IV ONE (11:13)
[2019-05-16] MEDS: HYDROmorphone 0.5 MG/0.5 ML SYRINGE IVP PRN ×3 (11:28→11:42)
[2019-05-16 11:30] VITALS: TEMP 97.7
[2019-05-16] MEDS ORDERED: TAMSULOSIN 0.4 MG CAP.ER.24H PO STA (11:44)
[2019-05-16] MEDS ORDERED: NALOXONE 0.4 MG/ML 1 ML VIAL IV PRN (11:44)
[2019-05-16] MEDS ORDERED: HYDROcodone/APAP 5-325MG 1 EACH TAB PO PRN (11:44)
--- NOTE | 2019-05-16 12:07 | P.OP ---
Date of Procedure: 05/16/19 Procedure(s) Performed: PREOPERATIVE DIAGNOSIS: Bilateral inguinal hernia POSTOPERATIVE DIAGNOSIS: Same PROCEDURE: Laparoscopic repair bilateral inguinal hernia with the da You robot assistance with mesh SURGEON: Nina EBL: Minimal ANESTHESIA: General COMPLICATIONS: None OPERATIVE PROCEDURE: Patient was placed in the operating table in the supine position. The patient was placed under general anesthesia. The abdomen was prepped and draped in usual sterile fashion. A small curvilinear supraumbilical incision was made. The fascia was retracted anteriorly with [place] forceps. The Veress needle was inserted. The saline drop test was normal. Insufflation took place to 15 mmHg. A 5 mm trocar was placed into the peritoneal cavity. This was later switched to a 12 mm trocar. 2 additional 8 mm trochars were placed in the right upper quadrant and left upper quadrant under visualization. The robotic arms were then brought in and docked into place. The fenestrated bipolar was used in the left arm and the laparoscopic joyce was utilized in the right arm. A 30 12 mm scope was used in the up position. The peritoneal cavity was inspected. The patient had some adhesions between the omentum and the lower midline which were dissected sharply. The patient had a very large indirect hernia containing a good portion of the sigmoid colon on the left-hand side and a small to moderate sized direct hernia on the right. The left side was first addressed. The peritoneum was incised in a horizontal fashion cephalad to the internal inguinal ring. Following that careful dissection of the preperitoneal space took place. This took place using both electrocautery, sharp dissection but primarily blunt dissection. Visualization of the pubic tubercle and Melo's ligament took place medially. Full dissection took place laterally as well. The hernia sac was fully dissected. In doing so the hernia sac was torn at its apex. This later required closure with a running 20 via lock suture. The right side was then addressed in a similar fashion. The preperitoneal space was easier to dissect in this area. Direct hernia was easily reducible. We had connection between the right and left dissection planes. Once we had adequate space the 16 x 12 progrip mesh was advanced into the preperitoneal space and flattened out appropriately to cover all potential hernia sites. No sutures were used. The peritoneal defect was then closed using a locking 2-0 VLok suture. A small defect in the peritoneum on the right-hand side was closed using a 3-0 Vicryl suture. The pneumoperitoneum was then evacuated. The fascia at the 12 mm site was closed using an 0 Vicryl stitch. The skin of all 3 sites was closed using a 4-0 Monocryl stitch. Skin glue was then applied. DISPOSITION: Stable to recovery room
[2019-05-16] MEDS ORDERED: TAMSULOSIN 0.4 MG CAP.ER.24H PO ONE (12:31)
[2019-05-16 13:24] VITALS: RESP 18
[2019-05-16] MEDS ORDERED: Acetaminophen-Codeine 300-30mg TAB PO ONE (13:25)
[2019-05-16 14:00] VITALS: BP 137/84; PULSE 74
== END 2019-05-16 15:53 | disposition home or self-care (01) ==
LOC: OR 05:52
PROVIDERS: ATTEND Surgery
DX: K40.20 Bilateral inguinal hernia, without obstruction or gangrene, not specified as recurrent (principal); I48.91 Unspecified atrial fibrillation; I10 Essential (primary) hypertension; E78.5 Hyperlipidemia, unspecified; I08.1 Rheumatic disorders of both mitral and tricuspid valves; M10.9 Gout, unspecified; M19.90 Unspecified osteoarthritis, unspecified site; Z79.899 Other long term (current) drug therapy; Z79.01 Long term (current) use of anticoagulants; Z98.890 Other specified postprocedural states; Z87.442 Personal history of urinary calculi; Z80.3 Family history of malignant neoplasm of breast
CPT/HCPCS: 49650; S2900; 64488

== ENCOUNTER → 2019-12-18 | Outpatient (CLI) | payer OTHER ==
--- NOTE | 2019-12-18 16:11 | CONS ---
CONSULTATION REASON FOR CONSULTATION: Sleep apnea. This is a 59-year-old male patient was referred to me for sleep apnea evaluation. This patient has a history of paroxysmal atrial fibrillation. Upon further investigation was also found to have a large right atrium and right ventricle. He has atrial fibrillation, asymptomatic and does not complain of any palpitation or dizziness. He is currently under adequate rate control with metoprolol and he is on long-term anticoagulation with Xarelto. He was investigated for his abnormal echocardiogram. He also underwent a MAYURI and a cardiac MRI evaluation that showed enlarged right atrium and right ventricle that was originally identified on a transthoracic 2D echocardiogram. His left ventricle is normal size and function. His right ventricular pressures are also normal. There is no evidence of any intra-arterial or bqce-as-cbzbe shunting. There is a mild tricuspid regurgitation, a mild mitral regurgitation and aortic regurgitation. The aorta was normal. The patient is undergoing further investigation at this point in time. In terms of sleep apnea, he snores very loud and he has been told by family members to stop breathing during sleep. He wakes up tired and fatigued and sleepy during the day. He goes to bed around 9 pm, wakes up at 5 a.m. in the morning. He has been averaging around 8 hours of sleep. He has some increased tiredness and sleepiness and his current Crawford score is at 12. No recent weight gain or weight loss. Overall, he has gained around 10 pounds over the past 6 months and he attributes this to the ongoing COVID pandemic. No history of any motor vehicle accident because of feeling drowsy or sleepy. He prefers to sleep on his side. No sleep paralysis. No hallucinations. No cataplexy. No restlessness in lower extremities. No other major comorbidities. PAST MEDICAL HISTORY: 1. Paroxysmal atrial fibrillation. 2. Chronic enlargement of the right atrium and right ventricle, under investigation. 3. Hyperlipidemia. PAST SURGICAL HISTORY: Includes double hernia repair, arthroscopic knee surgery and surgery for kidney stone. DRUG ALLERGIES: Not known. OUTPATIENT MEDICATIONS: Metoprolol ER 25 mg p.o. daily. He is also on Xarelto 20 mg p.o. daily and Zocor 20 mg p.o. daily. FAMILY HISTORY: The patient's family history is negative for any sleep breathing disorder. He has a family history of coronary artery disease, however. REVIEW OF SYSTEMS: A 12-point review of system was done. Positive findings all mentioned above in history of present illness. No chest pain. No shortness of breath. No palpitations. No history of any DVT or pulmonary embolism. No history of any lower extremity edema. No history of any connective tissue disease. PHYSICAL EXAMINATION: BP is 134/82, pulse 74, respirations 16, temperature 98.3, saturation 98% on room air. Height is 5, 11, weight 234, BMI 37.6. Neck size 16 inches. GENERAL APPEARANCE: Calm, comfortable. HEAD: Atraumatic, normocephalic. NECK: Supple. No JVD. No goiter or neck masses, Mallampati class 4. LUNGS: Clear to auscultation. HEART: Heart sounds are irregular. Positive S1, S2. No S3, S4. No murmurs. ABDOMEN: Soft, nontender. No organomegaly. EXTREMITIES: Varicose veins. There is no cyanosis or clubbing. NEUROLOGICALLY: He is or awake and alert and there is no focal neurological deficit. IMPRESSION: 1. Paroxysmal atrial fibrillation under investigation for sleep apnea. Rule out underlying sleep breathing disorder, especially the patient has significant dilatation of the right-sided cardiac structures including the right atrium and right ventricle without any obvious underlying reason or cause. 2. Chronic hypersomnia, Crawford score of 12. 3. Loud snoring with witnessed apneas. 4. Borderline obesity with a BMI of 32.6. 5. Hyperlipidemia. PLAN: Will set up this patient for a full polysomnogram. This will be an in-lab polysomnogram to assess his cardiac rhythm, heart rate variability and look for any other cardiac arrhythmias. Symptom will look for any sleep breathing disorder, nocturnal oxygen desaturation, or any other abnormalities that could contribute to his chronic cardiac problems. Results will be forwarded to Cardiology. MMODL / IJN: [id number] /
== END | disposition home or self-care (01) ==
LOC: SLEEP 14:36
PROVIDERS: ATTEND Internal Medicine Critical Care Medicine
DX: G47.10 Hypersomnia, unspecified (principal); E66.9 Obesity, unspecified; E78.5 Hyperlipidemia, unspecified; Z68.32 Body mass index [BMI] 32.0-32.9, adult
CPT/HCPCS: 99211

== ENCOUNTER → 2020-05-20 | Outpatient (CLI) | payer OTHER ==
--- NOTE | 2020-05-20 13:11 | PN ---
PROGRESS NOTE This patient is coming in for a compliance check regarding obstructive sleep apnea. This 60-year-old male patient diagnosed having moderate to severe ENOC with an AHI of 18. The patient was having enlarged right-sided cardiac structures including right atrium, right ventricle and the patient also has chronic atrial fibrillation. He has undergone a single cardioversion that was unsuccessful. For now, the patient is on APAP at a minimum pressure of 5 and maximum pressure of 20. The patient is at a humidity level of 4. On today's compliance, the patient is doing excellent. He is using his machine every night without any interruption. He has achieving around 7 hours of CPAP use per night with a leak of 14 L/minute and his AHI is down to 0.2. He is using the AirFit N10 nasal pillows. Weight is stable. No angina. No palpitations. No significant tiredness or sleepiness during the day. In fact, his sleep quality is improved and he is waking up much more refreshed. Snoring has subsided. His weight is up by around 8 pounds since his last evaluation. REVIEW OF SYSTEMS: Fourteen-point review of systems was done and positive findings were mentioned in history of present illness. PHYSICAL EXAMINATION: VITALS: BP is 143/76, pulse 89, respiratory rate 16, temperature is 98.0. [place] score is 7. Weight is 242. GENERAL APPEARANCE: Calm, comfortable. HEAD: Atraumatic, normocephalic. NECK: Supple. There is no JVD. No goiter or neck mass. Mallampati class 4. LUNGS: Diminished otherwise clear. HEART: Heart sounds are irregular. Positive S1, S2. ABDOMEN: Soft, nontender. No organomegaly. EXTREMITIES: No edema. No cyanosis or clubbing. NEUROLOGIC: Awake and alert x3. There is no focal neurological deficits. PSYCHIATRY: Negative for anxiety or depression. IMPRESSION: 1. Obstructive sleep apnea, moderate to severe AHI of 18.9. The patient has undergone a successful APAP treatment. 2. Chronic atrial fibrillation, post unsuccessful cardioversion. 3. Enlargement of the right-sided cardiac structures including RA and RV. 4. Hyperlipidemia. 5. Obesity. 6. Mild nocturnal oxygen desaturation secondary to obstructive sleep apnea. PLAN: 1. Continue APAP therapy at same level of pressure. 2. Activate EPR at the level of 3. 3. The patient is being successfully treated. He is averaging more than 4 hours. His AHI is down to 0.2. 4. He is being considered for another cardioversion and hopefully that will be a successful cardioversion now that he is on CPAP treatment. 5. Encourage weight loss. 6. See me back in a year's time in followup. ANDREI / WANDA: [id number] /
== END | disposition home or self-care (01) ==
LOC: SLEEP 11:39
PROVIDERS: ATTEND Internal Medicine Critical Care Medicine
DX: G47.33 Obstructive sleep apnea (adult) (pediatric) (principal); I48.20 Chronic atrial fibrillation, unspecified; I51.7 Cardiomegaly; E66.9 Obesity, unspecified; E78.5 Hyperlipidemia, unspecified; Z99.89 Dependence on other enabling machines and devices

== ENCOUNTER → 2021-05-26 | Outpatient (CLI) | payer OTHER ==
--- NOTE | 2021-05-26 17:25 | PN ---
PROGRESS NOTE This is a 61-year-old male patient coming in for an annual check regarding obstructive sleep apnea. The patient is known to have obstructive sleep apnea. The patient remains on APAP, pressure minimum of 5, maximum of 20. The patient has lost weight. He used to weigh around 242 pounds last year and currently is down to 235. The patient has been averaging around 7.5 hours of CPAP use per night and CPAP use for more than 4 hours has been above 80%. He has used his machine 28 out of the past 30 days. Meanwhile, the patient has been averaging a pressure of 8.7 cm of water on his APAP mode with a leak of 20 L/minute, and AHI is down to 0.2. The patient is using an AirFit N30i medium-sized nose mask. He is doing well. No angina. No palpitations. No major shortness of breath. No hypersomnia or sleepiness. The patient is benefitting and he is alert and awake during the day. His level of alertness has improved considerably. His cardiac situation is stable. He remains in atrial fibrillation. He is known to have a cardiac defect with enlarged right-sided cardiac structures and a shunt. He had unsuccessful cardioversion. He remains on long-term anticoagulation. REVIEW OF SYSTEMS: Fourteen-point review of systems was done. No syncope. No angina. No palpitations. No altered mentation. No major hypersomnia or sleepiness. Treatment is successful. PHYSICAL EXAMINATION: VITAL SIGNS: BP is 122/80, pulse 85, respirations 16, temperature 97.0, saturation 98% on room air. Height is 5 feet 11 inches, weight 231. Johnson score is 8. BMI 32.2. GENERAL APPEARANCE: Calm, comfortable. HEAD: Atraumatic, normocephalic. Neck is supple. No JVD. No goiter or neck masses. Mallampati class IV. LUNGS: Diminished; otherwise clear. Heart sounds are irregular. S1, S2. No S3, S4. No murmurs. ABDOMEN: Soft, nontender. No organomegaly. EXTREMITIES: No edema. No cyanosis or clubbing. NEUROLOGIC: Awake and alert. There is no focal neurological deficit. IMPRESSION: 1. Obstructive sleep apnea; AHI of 18.9. Currently undergoing successful CPAP therapy. The patient remains on APAP mode, pressure minimum of 5, maximum of 20. Compliance data was checked. 2. Right-sided heart failure with enlargement of the right-sided cardiac structures, including RA and RV. 3. Chronic atrial fibrillation, persistent; unsuccessful cardioversion. 4. Hyperlipidemia. 5. Obesity with interval weight loss. Current BMI is down to 32 and body weight is down to 235. PLAN: 1. Continue APAP therapy at the same level of pressure. 2. Keep same mask interface, which is an AirFit N30i medium-sized nose mask. 3. Management of atrial fibrillation per Cardiology. 4. Follow-up echocardiogram. 5. Treatment is successful. Compliance data was checked. Supplies will be refilled. See me back in a few years' time in followup, earlier if needed. MMODL / IJN: [id number] /
== END | disposition home or self-care (01) ==
LOC: SLEEP 13:23
PROVIDERS: ATTEND Internal Medicine Critical Care Medicine
DX: Z53.9 Procedure and treatment not carried out, unspecified reason (principal)

== ENCOUNTER → 2022-10-01 | Outpatient (CLI) | payer OTHER ==
--- NOTE | 2022-10-01 16:45 | XR ---
EXAMINATION TYPE: XR chest 2V DATE OF EXAM: 10/01/2022 4:31 PM COMPARISON: None TECHNIQUE: XR chest 2V Frontal and lateral views of the chest. CLINICAL INDICATION:Male, 62 years old with history of R07.9; FINDINGS: Lungs/Pleura: There is no evidence of pleural effusion, focal consolidation, or pneumothorax. Pulmonary vascularity: Unremarkable. Heart/mediastinum: Cardiomediastinal silhouette is enlarged. Atherosclerotic calcifications are seen in the aorta. Left atrial appendage occlusion devices present. Musculoskeletal: No acute osseous pathology. Midline sternotomy wires are noted and stable. IMPRESSION: Cardiomegaly with post CABG changes. No radiographic evidence of an acute process.
== END | disposition home or self-care (01) ==
LOC: RADXRMAIN 16:15
PROVIDERS: ATTEND Family Medicine
DX: I51.7 Cardiomegaly (principal); R07.9 Chest pain, unspecified; Z95.1 Presence of aortocoronary bypass graft
CPT/HCPCS: 71046

== ENCOUNTER → 2023-07-14 | Outpatient (CLI) | payer OTHER ==
--- NOTE | 2023-07-14 11:29 | XR ---
EXAMINATION TYPE: XR chest 2V DATE OF EXAM: 07/14/2023 COMPARISON: 10/01/2022 INDICATION: Chest congestion cough TECHNIQUE: Frontal and lateral views of the chest are obtained. FINDINGS: The heart size is prominent. Sternotomy wires are present from prior CABG The pulmonary vasculature is normal. The lungs are clear. IMPRESSION: 1. No acute pulmonary process. 2. Mild cardiomegaly
== END | disposition home or self-care (01) ==
LOC: RADXRMAIN 10:27
PROVIDERS: ATTEND Family Medicine
DX: I51.7 Cardiomegaly (principal)
CPT/HCPCS: 71046

== ENCOUNTER → 2023-08-02 | Outpatient (CLI) | payer OTHER ==
[2023-08-02 12:28] LABS: African American GFR (CKD) 81 (>60 ml/min/1.73 sqM); Blood Urea Nitrogen 23 mg/dL (9-20); Non-African American GFR(CKD) 70 (>60 ml/min/1.73 sqM)
--- NOTE | 2023-08-04 22:53 | CT ---
EXAMINATION TYPE: CT abdomen pelvis w con DATE OF EXAM: 08/02/2023 COMPARISON: None INDICATION: ANEMIA DLP: 1751.9 mGycm, Automated exposure control for dose reduction was used. CONTRAST: 100 mL of Isovue 300. Study performed with Oral Contrast TECHNIQUE: Axial images were obtained from above the diaphragm to the pubic rami in the axial plane a t 5 mm thick sections. Reconstructed images are reviewed on the computer in the coronal plane. FINDINGS: Limited CT sections are obtained the lung bases. The lung bases are clear. CT ABDOMEN: Liver: Normal Spleen: Normal Pancreas: Normal Adrenal glands: Right adrenal gland is thickened at 2.9 cm. Gallbladder: Cholelithiasis Kidneys: No masses are evident. No hydronephrosis is present. No cysts are present. Delayed images were obtained through the kidneys, which remain unremarkable. Aorta: Vascular calcification is within the aorta. Inferior vena cava: Normal. CT PELVIS: Loops of bowel within the abdomen and pelvis are normal. Diverticular changes within the sigmoid colo n. No acute diverticulitis is evident. There are loops of bowel which are incompletely distended o r lack oral contrast limiting their evaluation. Appendix: Normal as visualized. Urinary bladder: Normal. Genitourinary structures: Prostate slightly prominent Osseous structures: No suspicious lytic or sclerotic lesions. IMPRESSION: 1. Diverticulosis without acute diverticulitis. 2. Cholelithiasis. 3. Enlarged right adrenal gland 2.9 cm. Monitoring is recommended.
== END | disposition home or self-care (01) ==
LOC: RADCTMAIN 11:35
PROVIDERS: ATTEND Family Medicine
DX: D64.9 Anemia, unspecified (principal); B16.9 Acute hepatitis B without delta-agent and without hepatic coma; E80.6 Other disorders of bilirubin metabolism; K80.20 Calculus of gallbladder without cholecystitis without obstruction; K57.90 Diverticulosis of intestine, part unspecified, without perforation or abscess without bleeding; E27.9 Disorder of adrenal gland, unspecified
CPT/HCPCS: 82565; 84520; 74177; 36415; Q9967

== ENCOUNTER → 2024-01-13 | Outpatient (CLI) | payer OTHER ==
[2024-01-13 10:47] LABS: African American GFR (CKD) 77 (>60 ml/min/1.73 sqM); Blood Urea Nitrogen 27 mg/dL (9-20); Non-African American GFR(CKD) 66 (>60 ml/min/1.73 sqM)
--- NOTE | 2024-01-13 12:07 | CT ---
EXAMINATION TYPE: CT adrenal glands wo/w con CT DLP: 2062.5 mGycm, Automated exposure control for dose reduction was used. DATE OF EXAM: 01/13/2024 11:26 AM COMPARISON: CT abdomen pelvis 08/02/2023 CLINICAL INDICATION:Male, 63 years old with history of D35.01 BENIGN NEOPLASM OF RIGHT ADRENAL GLAND; ADRENAL GLANDS TECHNIQUE: Multiphase CT of the abdomen following the administration of 100 cc of Isovue 300 IV cont rast material and oral contrast. Coronal and sagittal reformats were performed. FINDINGS: LOWER CHEST: Bibasilar subsegmental atelectasis. Cardiomegaly. Partial visualization of median sterno ciaran wire. Partial visualization of atrial septal occlusion device. ABDOMEN LIVER: Unremarkable GALLBLADDER AND BILE DUCTS: Cholelithiasis. No biliary duct dilatation. PANCREAS: Unremarkable. SPLEEN: Unremarkable. ADRENAL GLANDS: Left adrenal gland is unremarkable. Right adrenal gland stable 3.2 cm lesion with a H [place] unit of 3 on noncontrast imaging. Demonstrates a Houns[place] unit of 35 on portal venous pha se. Demonstrates a [place]oun[place] unit of 17 on delayed phase. KIDNEYS AND URETERS: No evidence of hydronephrosis or renal calculus. The kidneys enhance symmetrical ly. Contrast demonstrated on delayed phase within the collecting systems. STOMACH AND BOWEL: Tiny hiatal hernia, duodenum is unremarkable. No focal bowel wall thickening or st randing inflammatory changes. Enteric contrast reaches the mid small bowel. Distal colonic diverticul osis without surrounding inflammatory changes. No evidence of bowel obstruction. PERITONEUM: No evidence of pneumoperitoneum or free fluid. VASCULATURE: Mild atherosclerotic calcifications are present throughout the abdominal aorta and its b ranches. No evidence of aortic aneurysm. MUSCULOSKELETAL: No acute osseous abnormalities. Degenerative changes of the right SI joint with ante rior fusion. LYMPH NODES: No evidence for lymphadenopathy. SOFT TISSUE/ABDOMINAL WALL: Unremarkable IMPRESSION: 1. Stable 3.2 cm right adrenal gland lesion with attenuation characteristics consistent with a benig n lipid rich adenoma. 2. Cholelithiasis. 3. Colonic diverticulosis. [facility], , 01/13/2024 12:05 PM
[2024-01-19 22:43] LABS: Metanephrine, Free <25 pg/mL (< OR = 57); Normetanephrine, Free 33 pg/mL (< OR = 148); Total, Free (MN + NMN) 33 pg/mL (< OR = 205)
== END | disposition home or self-care (01) ==
LOC: RADCTMAIN 09:02
PROVIDERS: ATTEND Urology
DX: D35.01 Benign neoplasm of right adrenal gland
CPT/HCPCS: 36415; 74170; 82565; 83835; 84520